=== PATIENT | male | born 1970 | race Caucasian/White ===

== ENCOUNTER 2024-05-01 13:03 | Emergency (ER) | payer SELFPAY ==
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
--- NOTE | ~2024-05-01 | XR_ITS ---
EXAMINATION: XR LUMBOSACRAL SPINE CLINICAL INFORMATION: low back pain COMPARISON: None available. TECHNIQUE: Three views of the lumbosacral spine. FINDINGS: Normal bone mineralization. No fractures, compression deformities, or suspicious focal bony lesions. There is a right lateral large disc osteophytic complex arising from L1-2. There is a grade 1, 4 mm spondylolisthesis L5-S1. There is moderate to severe diffuse lumbar disc narrowing with disc vacuum phenomenon at all levels. 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 There is mild to moderate degenerative facet change at L4-5 and L5-S1. The sacrum and SI joints appear unremarkable. There are vascular calcifications in the soft tissues. XR/XR lumbar spine 2-3V IMPRESSION: 1. No acute findings lumbar spine. 2. Grade 1 spondylolisthesis L5-S1. 3. Diffuse degenerative disc disease. Electronically signed by: Dilan Villalobos MD 05/01/2024 03:01 PM [facility] [place]
[2024-05-01 13:10] VITALS: BP 147/103; BP 180/100; PULSE 102; PULSE 97; RESP 18; TEMP 36; O2SAT 97; O2SAT 98; BMI 24.4
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
[2024-05-01 16:28] VITALS: BP 147/103; PULSE 97; RESP 18; TEMP 36; O2SAT 98
== END 2024-05-01 16:29 | disposition home or self-care (01) ==
PROVIDERS: Emergency Provider Emergency Medicine; PCP Pediatrics
DX: S39.92XA Unspecified injury of lower back, initial encounter (principal); S09.90XA Unspecified injury of head, initial encounter; F10.129 Alcohol abuse with intoxication, unspecified; M54.2 Cervicalgia; R51.9 Headache, unspecified; I10 Essential (primary) hypertension; V19.9XXA Pedal cyclist (driver) (passenger) injured in unspecified traffic accident, initial encounter; Y93.89 Activity, other specified; Y92.89 Other specified places as the place of occurrence of the external cause; Y99.8 Other external cause status
CPT/HCPCS: 70450; 72100; 72125; 99282

== ENCOUNTER → 2024-05-01 13:41 | Outpatient (BNV) | payer SELFPAY | PROVIDERS: Emergency Provider Emergency Medicine; PCP Pediatrics; Visit Provider Radiology Diagnostic Radiology | DX: M54.50 Low back pain, unspecified (principal); S09.90XA Unspecified injury of head, initial encounter | CPT/HCPCS: 70450; 72100; 72125 ==